=== PATIENT | male | born 2000 | race Caucasian/White ===

== ENCOUNTER 2022-06-13 20:01 | Emergency (ER) | payer OTHER, BC, SELFPAY ==
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
[2022-06-13] MEDS: MORPHINE SULFATE (*CRX) 4 MG/ML INJ IV PUSH (20:14)
[2022-06-13] MEDS: ONDANSETRON INJ 4 MG/2 ML VIAL IV PUSH (20:14)
[2022-06-13 20:20] VITALS: BP 163/80; PULSE 102; PULSE 88; RESP 20; TEMP 36.7; O2SAT 100
[2022-06-13 20:26] LABS: Basophils Absolute Auto 0.09 K/mm3 (0.00-0.10); Basophils Percent Auto 0.6 % (0.0-1.0); Eosinophils Absolute Auto 0.31 K/mm3 (0.02-0.50); Eosinophils Percent Auto 2.1 % (1.0-6.0); Hematocrit 46.6 % (40.0-54.0); Hemoglobin 16.2 g/dL (14.0-18.0); Immature Granulocyte Absolute 0.04 K/mm3 (0.00-0.00); Immature Granulocyte Percent A 0.3 % (0.0-0.0); Lymphocytes Absolute Auto 2.48 K/mm3 (1.10-4.50); Lymphocytes Percent Auto 16.9 % (18.0-42.0); Mean Corpuscular HGB Conc 34.8 g/dL (32.0-36.0); Mean Corpuscular Hemoglobin 30.4 pg (27.0-31.0); Mean Corpuscular Volume 87.4 fL (78.0-102.0); Mean Platelet Volume 10.2 fl (8.7-11.0); Monocytes Absolute Auto 0.75 K/mm3 (0.10-0.90); Monocytes Percent Auto 5.1 % (2.0-11.0); Platelet Count Result 371 K/mm3 (150-420); Red Blood Count 5.33 M/mm3 (4.70-6.10); Red Cell Distribution Width 13.2 % (11.6-14.4); White Blood Count 14.7 K/mm3 (4.8-10.8)
[2022-06-13 20:27] LABS: Add Urine Microscopic? NO; Appearance Urine Clear (Clear); Bilirubin Urine Negative (Negative); Blood Urine Negative (Negative); Color Urine Light Yellow (Yellow); Glucose Urine UA Negative (Negative); Ketones Urine Negative (Negative); Leukocyte Esterase Ur Negative LEU/UL (Negative); Nitrate Urine Negative (Negative); Protein Urine Negative (Negative); Specific Grav Ur <= 1.005 (1.010-1.020); Urobilinogen Urine 0.2 mg/dL (0.2-1.0)
[2022-06-13 20:39] LABS: Alanine Aminotransferase 28 U/L (16-63); Albumin Level 4.9 g/dL (3.4-5.0); Alkaline Phosphatase 80 U/L (46-116); Anion Gap 10 mmol/L (8-16); Aspartate Amino Transferase 17 U/L (15-37); Bilirubin,Total 0.7 mg/dL (0.00-1.00); Blood Urea Nitrogen 11 mg/dL (7-18); Calcium 8.3 mg/dL (8.5-10.1); Carbon Dioxide 28 mmol/L (21-32); Chloride 106 mmol/L (98-108); Estimated Glomerular Filt Rate > 60; Glucose 92 mg/dL (70-99); Osmolality Calculated 297 mOsm/kg (285-295); Potassium 3.8 mmol/L (3.5-5.1); Sodium 144 mmol/L (136-145); Total Protein 8.5 g/dL (6.4-8.2)
[2022-06-13 21:11] VITALS: BP 150/97; PULSE 90; RESP 20; O2SAT 100
[2022-06-13] MEDS: KETOROLAC 30 MG/ML VIAL (*BKC) IV PUSH (21:43)
[2022-06-13] MEDS: LIDOCAINE 5% PATCH 1 PATCH TRANSDERM (21:46)
[2022-06-13] MEDS: oxyCODONE/ACETAMINOPHEN (*CRX) 5-325 MG TABLET 1 TABLET PO (21:46)
[2022-06-13 22:03] VITALS: BP 122/82; PULSE 90; RESP 20; TEMP 36.6; O2SAT 100
== END 2022-06-13 22:06 | disposition home or self-care (01) ==
PROVIDERS: Emergency Provider Preventive Medicine Aerospace Medicine
DX: S70.01XA Contusion of right hip, initial encounter (principal); R10.31 Right lower quadrant pain; F10.129 Alcohol abuse with intoxication, unspecified; Z87.891 Personal history of nicotine dependence; Y90.9 Presence of alcohol in blood, level not specified
CPT/HCPCS: 36415; 71260; 74177; 80053; 81003; 85025; 96374; 96375; 99284; A9270; J1885; J2270; J2405; J7120; Q9967